=== PATIENT | female | born 1965 | race Caucasian/White ===

== ENCOUNTER → 2018-02-24 10:22 | Outpatient (CLI) | payer OTHER, SELFPAY ==
--- NOTE | 2018-02-24 10:25 | MM_ITS ---
MM Dig screening mamm BI w/CAD ORDERING PHYSICIAN : Josselin Mcconnell PATIENT AGE: 53 years GENDER: Female COMPARISON: February 20172014, July 2010 INDICATION: ITS.REASON: SCREENING no hormones. No new complaints Family history. Mother with breast cancer. Maternal grandmother with breast cancer. TECHNIQUE: Standard CC and MLO images were obtained. R2 CAD reviewed. FINDINGS: Mild/moderate residual fibroglandular elements in the immediate retroareolar region with otherwise generalized fatty replacement. No dominant or suspicious mass no suspicious calcifications. . No new areas of concern . CAD computer review highlights no areas of concern either . IMPRESSION: ... Stable bilateral mammogram. Follow-up in one year recommended. BI-RADS Category: 1 Negative RECOMMENDED FOLLOW-UP: 1YR 1 YEAR FOLLOW-UP (A letter has been sent to the patient regarding results of the study.)
== END ==
PROVIDERS: Family Provider Family Medicine; PCP Family Medicine; Visit Provider Obstetrics & Gynecology Gynecology
DX: Z12.31 Encounter for screening mammogram for malignant neoplasm of breast (principal)
CPT/HCPCS: 77067

== ENCOUNTER → 2019-04-18 09:16 | Outpatient (CLI) | payer OTHER, SELFPAY ==
--- NOTE | 2019-04-18 09:20 | MM_ITS ---
PROCEDURE: MM DIG SCREENING MAMM BI W/CAD CLINICAL INDICATION: SCREENING There is a history of breast cancer in patient's mother and grandmother. COMPARISON: [facility] DIG MAMM-SCREEN KIM from 02/11/2015 [facility] DIG MAMM-SCREEN KIM W/CAD from 02/15/2017 [facility] MM Dig screening mamm BI w/CAD from 02/24/2018 TECHNIQUE: Standard CC and MLO images were obtained. R2 CAD reviewed. FINDINGS: The breasts are composed primarily of fat with minimal fibroglandular elements seen in the subareolar regions bilaterally. The findings are stable unchanged from previous exams. There is no suspicious lesion and no suspicious microcalcifications. There is stable small nodes in both axilla. IMPRESSION: Fibrofatty parenchyma with no suspicious lesions seen BI-RAD Category: 1 Negative FOLLOW-UP: 1YR 1 Year Follow-up (A letter has been sent to the patient regarding results of the study.) Dictated by: Dr. Arun Farias MD 04/19/2019 16:[address] Arun Farias MD in [place] 04/19/2019 16:30
== END ==
PROVIDERS: PCP Family Medicine; Visit Provider Obstetrics & Gynecology Gynecology
DX: Z12.31 Encounter for screening mammogram for malignant neoplasm of breast (principal)
CPT/HCPCS: 77067

== ENCOUNTER → 2019-11-19 10:22 | Outpatient (CLI) | payer OTHER, SELFPAY ==
--- NOTE | 2019-11-19 10:32 | US_ITS ---
PROCEDURE: US THYROID CLINICAL INDICATION: GOITER Goiter COMPARISON: No exams were available for comparison FINDINGS: Right lobe: 5.3 x 2.1 x 1.8 cm. There are multiple small hypoechoic nodules. The largest nodule on the right is 11 x 7 mm and is mixed hypoechoic and slightly hyperechoic well-circumscribed. The Left lobe: 5.2 x 2.4 x 3 cm. A dominant nodules present in the mid polar region on the left at 3.4 x 2.5 cm. This is mildly suspicious with the T rads level 3 greater than 2.5 cm. Recommend ultrasound-guided FNA. There is an additional 6 mm cyst in the mid polar region on the left Isthmus: Mildly thickened at 6 mm with a small hypoechoic nodule laterally on the right at 3 mm Additional findings: IMPRESSION: Enlarged thyroid gland bilaterally with dominant nodule on the left T rads level 3 mildly suspicious, recommend ultrasound-guided FNA Dictated by: Charlie Gu MD 11/19/2019 12:20 Electronically signed by Charlie Gu MD in [place] 11/19/2019 12:20
== END ==
PROVIDERS: PCP Family Medicine; Visit Provider Family Medicine
DX: E04.9 Nontoxic goiter, unspecified (principal)
CPT/HCPCS: 76536

== ENCOUNTER → 2021-08-10 13:13 | Outpatient (CLI) | payer OTHER, SELFPAY ==
--- NOTE | 2021-08-10 13:21 | XR_ITS ---
FINAL REPORT CLINICAL HISTORY: mid/lower back pain since pt felt pop on 08/08/20 while bending COMPARISON: Prior lumbar spine radiographs dated March 22, 2017 FINDINGS: THORACIC SPINE Three views were obtained. There is no acute fracture. There is no malalignment. There are mild and moderate degenerative changes with osteophytes. There is no soft tissue abnormality. IMPRESSION: Mild and moderate degenerative changes with no acute bony abnormality. LUMBAR SPINE Five views were obtained. There is no acute fracture. There is no malalignment. There are mild and moderate degenerative changes with osteophytes. There is no soft tissue abnormality. IMPRESSION: Mild degenerative changes with no acute bony abnormality, stable. Reviewed, Interpreted and Dictated by Markus Shanks III, MD Transcribed by Margy Robledo Authenticated by Markus Shanks III, MD on 08/10/2021 02:37:19 PM [facility]
--- NOTE | 2021-08-10 13:23 | XR_ITS ---
FINAL REPORT CLINICAL HISTORY: pain FINDINGS: RIGHT ANKLE: Three weight-bearing views of the right ankle were obtained. There is no acute fracture or dislocation. The joint spaces and mortise are intact. There are small calcaneal spurs. There is no soft tissue abnormality. IMPRESSION: No acute bony abnormality. Reviewed, Interpreted and Dictated by Markus Shnaks III, MD Transcribed by Margy Robledo Authenticated by Markus Shanks III, MD on 08/10/2021 02:37:12 PM [facility]
--- NOTE | 2021-08-10 13:23 | XR_ITS ---
FINAL REPORT CLINICAL HISTORY: pain FINDINGS: LEFT FOOT Three weight-bearing views of the left foot demonstrate no acute fracture or dislocation. There are postoperative changes of the distal fibula. The visualized joint spaces are normally aligned. There are mild degenerative changes. There is a small calcaneal spur. The soft tissues are unremarkable. IMPRESSION: No acute bony abnormality. Reviewed, Interpreted and Dictated by Markus Shanks III, MD Transcribed by Margy Robledo Authenticated by Markus Shanks III, MD on 08/10/2021 02:37:27 PM [facility]
--- NOTE | 2021-08-10 13:23 | XR_ITS ---
FINAL REPORT CLINICAL HISTORY: pain FINDINGS: RIGHT FOOT Three weight-bearing views of the right foot demonstrate no acute fracture or dislocation. The visualized joint spaces are normally aligned. There are mild degenerative changes. There are small calcaneal spurs. The soft tissues are unremarkable. IMPRESSION: No acute bony abnormality. Reviewed, Interpreted and Dictated by Markus Shanks III, MD Transcribed by Margy Robledo Authenticated by Markus Shanks III, MD on 08/10/2021 02:37:11 PM [facility]
--- NOTE | 2021-08-10 13:23 | XR_ITS ---
FINAL REPORT CLINICAL HISTORY: pain FINDINGS: LEFT ANKLE: Three weight-bearing views of the left ankle were obtained. There are postoperative changes of the distal fibula. There is no acute fracture or dislocation. There are mild degenerative changes with osteophytes. There is a small calcaneal spur. There is no soft tissue abnormality. IMPRESSION: Mild degenerative change with no acute bony abnormality. Reviewed, Interpreted and Dictated by Markus Shanks III, MD Transcribed by Margy Robledo Authenticated by Markus Shanks III, MD on 08/10/2021 02:37:[address] [facility]
== END ==
PROVIDERS: PCP Family Medicine; Referring Provider Podiatrist; Visit Provider Nurse Practitioner Family
DX: M79.672 Pain in left foot (principal); M79.671 Pain in right foot; M25.572 Pain in left ankle and joints of left foot; M25.571 Pain in right ankle and joints of right foot
CPT/HCPCS: 72084; 73610; 73630

== ENCOUNTER → 2021-09-23 10:48 | Outpatient (CLI) | payer OTHER, SELFPAY ==
--- NOTE | 2021-09-23 10:51 | MM_ITS ---
PROCEDURE INFORMATION: Exam: MG Bilateral Screening 3D Mammography Exam date and time: 09/23/2021 10:47 AM Age: 56 years old Clinical indication: Screening mammogram. TECHNIQUE: Imaging protocol: Bilateral Screening tomosynthesis and 2D mammography including computer-aided detection (CAD) when performed. COMPARISON: 1. MG MM DIG SCREENING MAMM BI W/CAD 04/18/2019 9:28 AM 2. MG [facility] MM Dig screening mamm BI w/CAD 02/24/2018 10:39 AM 3. MG [facility] DIG MAMM-SCREEN KIM W/CAD 02/15/2017 11:06 AM 4. MG [facility] DIG MAMM-SCREEN KIM 02/11/2015 9:52 AM FINDINGS: MAMMOGRAPHY: Breast composition: There are scattered areas of fibroglandular density. Mass: None. Architectural distortion: No new or suspicious architectural distortion. Calcifications: No new or suspicious calcifications are present Asymmetric density: No new or suspicious asymmetric density is present Skin thickening: None. Axillary adenopathy: None. IMPRESSION: No mammographic evidence of malignancy. Recommend annual screening mammography unless otherwise clinically indicated. ASSESSMENT: BI-RADS category 1: Negative
== END ==
PROVIDERS: PCP Family Medicine; Visit Provider Obstetrics & Gynecology Gynecology
DX: Z12.31 Encounter for screening mammogram for malignant neoplasm of breast (principal)
CPT/HCPCS: 77063; 77067

== ENCOUNTER → 2021-11-19 11:37 | Outpatient (CLI) | payer OTHER, SELFPAY | PROVIDERS: PCP Physician Assistant; Visit Provider Physician Assistant | DX: U07.1 COVID-19 (principal) | CPT/HCPCS: C9803; U0003; U0005 ==

== ENCOUNTER → 2021-12-17 16:06 | Outpatient (CLI) | payer OTHER, SELFPAY ==
--- NOTE | 2021-12-17 16:12 | XR_ITS ---
FINAL REPORT CLINICAL HISTORY: EXERTIONAL SHORTNESS OF BREATH FINDINGS: Two views of the chest were obtained. The heart size and pulmonary vascularity are within normal limits. The mediastinum is normal. There is mild bronchial wall thickening which may represent bronchitis. There is no pneumothorax. The bony thorax is intact. IMPRESSION: Findings may represent bronchitis. Reviewed, Interpreted and Dictated by Markus Shanks III, MD Transcribed by Margy Robledo Authenticated and . [facility]
--- NOTE | 2021-12-17 16:12 | XR_ITS ---
FINAL REPORT CLINICAL HISTORY: RT SHOULDER PAIN FINDINGS: RIGHT SHOULDER 3 views demonstrate no acute fracture or dislocation. There are mild degenerative changes of the acromioclavicular joint. The visualized bony structures are well aligned. No soft tissue abnormality is seen. IMPRESSION: Mild degenerative change of the acromioclavicular joint. Reviewed, Interpreted and Dictated by Markus Shanks III, MD Transcribed by aMrgy Robledo Authenticated and [facility]
== END ==
PROVIDERS: PCP Physician Assistant; Visit Provider Physician Assistant
DX: R06.09 Other forms of dyspnea (principal); M25.511 Pain in right shoulder
CPT/HCPCS: 71046; 73030

== ENCOUNTER → 2021-12-25 09:13 | Outpatient (CLI) | payer OTHER, SELFPAY ==
--- NOTE | 2021-12-25 | CA_ITS ---
APPROVED REPORT Exam: Exercise Treadmill Technologist: Janet Machado, Ht: 5 ft 4 in Wt: 255 lbs BSA: 2.17 m2 HR: 85 bpm BP: 114/83 mmHg Rhythm: sinus tach Medical History Medications: Albuterol,,,,, Stress Test Details Test: Pat HR Resting HR: 107 bpm Max Heart Rate (APMHR): 166 bpm Max HR Achieved: 178 bpm Target HR (85% APMHR): 141 bpm % of APMHR: 107 Recovery HR: 150 bpm BP Resting BP: 125/83 mmHg Max BP: 162/90 mmHg Recovery BP: 162.0/90.0 mmHg ECG Resting ECG: Sinus tach Clinical Exercise duration: 04:32 min Highest Stage Achieved: Exercise capacity: 7.0 METs Stress ECG Conclusion During pat protocol pt experinced SOA with exertion, no CP noted. PVCs noted per Health Services Coordinator report, but I do not see these on recorded views. Extremely poor fitness... If PVCs were present during exercise combined with poor fitness would consider doing imaging stress test. Test Summary REST . . . . . . . Sitting REST . . . . . . . Standing REST 05:36 0.0 0.0 107 . 125/ 83 . . Stage 1 01:00 10.0 1.7 126 . . . . Stage 1 02:00 10.0 1.7 137 . . . . Stage 1 03:00 10.0 1.7 152 . 159/ 85 . . Stage 2 01:00 12.0 2.5 169 . . . . Stage 2 01:32 12.0 2.5 175 . . . Stop exercise at 04:32 RECOVERY 01:00 0.0 0.0 149 . 162/ 90 . . RECOVERY 02:00 0.0 0.0 123 . 162/ 90 . . RECOVERY 03:00 0.0 0.0 108 . 162/ 90 . . RECOVERY 04:00 0.0 0.0 103 . 113/ 86 . . RECOVERY 04:32 0.0 0.0 105 . 131/ 89 . . Electronically signed by : Klever Recio MD 12/25/2021 17:28:33
== END ==
PROVIDERS: PCP Physician Assistant; Visit Provider Physician Assistant
DX: R06.02 Shortness of breath (principal)
CPT/HCPCS: 93017

== ENCOUNTER 2022-01-06 14:50 | Outpatient (RCR) | payer OTHER, SELFPAY | END 2022-01-06 14:55 | disposition home or self-care (01) | LOC: OT 14:50 | PROVIDERS: PCP Physician Assistant; Visit Provider Physician Assistant | DX: M25.511 Pain in right shoulder (principal) | CPT/HCPCS: 97165 ==

== ENCOUNTER → 2022-02-11 07:22 | Outpatient (CLI) | payer SELFPAY ==
--- NOTE | 2022-02-11 07:22 | CT_ITS ---
FINAL REPORT CLINICAL HISTORY: . evaluate for cad FINDINGS: CT CORONARY CALCIUM SCORE W/O TECHNIQUE: Thin-section axial images were obtained through the heart and coronary arteries per CT coronary calcium score protocol. This study was performed with techniques to keep radiation doses as low as reasonably achievable (ALARA). Individualized dose reduction techniques using automated exposure control or adjustment of mA and/or kV according to the patient's size were employed. FINDINGS: On the axial images, there is calcification within the LAD. This gives a coronary artery calcium score of 1 based on the Agatston scale. This coronary artery calcium score places the patient within the 41st percentile based on age and gender. The heart size is normal. There is no pleural or pericardial effusion. Limited evaluation of the lungs reveal no suspicious nodule. IMPRESSION: Coronary artery calcium score of 1 based on the Agatston scale placing the patient within the 41st percentile based on age and gender. Reviewed, Interpreted and Dictated by Markus Shanks III, MD Transcribed by Margy Robledo Authenticated and [facility]
== END ==
PROVIDERS: PCP Family Medicine; Visit Provider Internal Medicine Cardiovascular Disease
DX: R06.00 Dyspnea, unspecified (principal); R42 Dizziness and giddiness; R00.2 Palpitations; R53.83 Other fatigue; R94.31 Abnormal electrocardiogram [ECG] [EKG]; Z87.891 Personal history of nicotine dependence
CPT/HCPCS: 75571

== ENCOUNTER → 2022-02-11 07:49 | Outpatient (CLI) | payer OTHER, SELFPAY ==
--- NOTE | 2022-02-11 07:51 | CA_ITS ---
APPROVED REPORT EXAM: Comprehensive 2D, Doppler, and color-flow Echocardiogram Flash Designer: Madison Jeffery RDCS Ht: 5 ft 4 in Wt: 251lbs BSA: 2.16 BP: 133/76 mmHg Indications: SOA,CAD 2D Dimensions LVOT 1.85 cm (M/F) 1.5-2.5 M-Mode Dimensions RVDd 1.91 cm (0.9-2.6) LA Diam 4.17 cm (1.9-4.0) LVDd 5.46 cm (3.5-5.7) Ao Diam 2.73 cm (2.0-3.7) LVDs 3.80 cm (3.5-5.7) IVSd 0.72 cm (0.6-1.1) PWd 0.72 cm (0.6-1.1) EF (Teich) 57.20% FS 30.40% EDV (Teich) 145.00 mL TAPSE 2.82 (<1.7) ESV (Teich) 62.00 mL LV Diastology E Decel Time 183.00 (160-240 msec) E/A Ratio 0.9 MED E' 7.30 (< 7 cm/sec) E'/MED E' Ratio 7.15 (>14) LAT E' 10.90 (<10 cm/sec) E/LAT E' Ratio 4.79 (>14) Mitral Valve MV E Max Benito. 52.00 (40-130 cm/s) MV A Velocity 57.00 (40-130 cm/s) E/A Ratio 0.92 MV Decel. Time 183.00 (160-240 ms) MV PHT 54.00 ms Tricuspid Valve TR P. Velocity 236.00 cm/s RAP Estimate 10.00 mmHg RVSP 32.20 mmHg Left Ventricle Left atrium is mildly enlarged, left ventricle normal size, there is no concentric left ventricular hypertrophy, estimated ejection fraction 55% with no regional wall motion abnormality. Diastolic parameters are inconclusive. Right Ventricle Right atrium and right ventricle are normal size and contractility. Aortic Valve Aortic valve is minimally thickened and fibrosed there is no aortic stenosis or aortic insufficiency. Mitral Valve Mitral valve is grossly normal, there is trace mitral regurgitation. Tricuspid Valve Tricuspid grossly normal, there is trace tricuspid regurgitation, calculated right ventricular systolic pressure 32 mmHg. Pulmonic Valve Pulmonic valve is poorly visualized. Great Vessels Aortic root is normal size. Inferior vena cava is poorly visualized. Pericardium No significant pericardial effusion noted. Conclusion 1. Normal left ventricular size preserved left ventricular systolic function, estimated ejection fraction 55% with no regional wall motion abnormality, diastolic parameters are inconclusive. 2. Trace mitral and tricuspid regurgitation. Calculated right ventricular systolic pressure 32 mmHg. 3. No significant pericardial effusion noted. 4. Inferior vena cava is poorly visualized. Electronically signed by : Valentin Lafleur MD 02/12/2022 15:54:03
--- NOTE | 2022-02-11 07:51 | US_ITS ---
FINAL REPORT CLINICAL HISTORY: numbness/tingling lower extremities FINDINGS: ANKLE-BRACHIAL PRESSURE INDICES Pressure indices are as follows: RIGHT LOWER EXTREMITY: Ankle-brachial pressure index: 1.22 Comments: Normal LEFT LOWER EXTREMITY: Ankle-brachial pressure index: 1.26 Comments: Normal IMPRESSION: No evidence of significant obstructive peripheral vascular disease of the lower extremities Reviewed, Interpreted and Dictated by Markus Shanks III, MD Transcribed by Rhonda Romero Authenticated and [facility]
[2022-02-11 08:59] LABS: Basophils # 0.1 K/mm3 (0-0.2); Basophils % 1.3 % (0.1-2.0); Eosinophils # 0.3 K/mm3 (0.0-0.4); Eosinophils % 3.6 % (0.1-12.0); Hematocrit 40.3 % (37.0-47.0); Hemoglobin 12.6 g/dL (12.2-16.2); Lymphocytes # 2.3 K/mm3 (0.7-4.5); Lymphocytes % 33.1 % (10-50); Mean Corpuscular HGB Conc 31.2 g/dL (31.8-35.4); Mean Corpuscular Hemoglobin 30.3 pg (27.0-31.2); Mean Corpuscular Volume 97.2 fl (81-99); Monocytes # 0.4 K/mm3 (0.1-1.0); Monocytes % 5.9 % (1.7-9.3); Neutrophils # 3.9 K/mm3 (1.8-7.8); Platelet Count 303 K/mm3 (142-424); Red Blood Count 4.15 M/mm3 (4.20-5.40); Red Cell Distribution Width 13.6 % (11.5-17.5)
[2022-02-11 10:17] LABS: Chloride 106 mmol/L (98-107); Potassium 4.4 mmoL/L (3.5-5.1); Sodium 140 mmol/L (136-145)
[2022-02-11 10:19] LABS: Blood Urea Nitrogen 21 mg/dl (7-17); Estimated Glomerular Filt Rate 87 ml/min (>60); GFR (African American) 105 ML/MIN (>60)
[2022-02-11 10:20] LABS: Alanine Aminotransferase 18 U/L (12-78); Albumin Level 4.4 g/dl (3.5-5.0); Alkaline Phosphatase 103 U/L (38-126); Anion Gap 8.4 mEq/L (5-15); Aspartate Amino Transferase 26 U/L (14-36); Calcium 9.1 mg/dl (8.4-10.2); Carbon Dioxide 30 mmol/L (22.0-30.0); Cholesterol 204 mg/dl (140-200); Glucose 107 mg/dl (74-100); Triglycerides 73 mg/dl (30-150); VLDL Cholesterol 15 mg/dL (0-40)
[2022-02-11 10:21] LABS: Chol/HDL Ratio 2.9 (1-3.5); HDL Cholesterol 70 mg/dl (40-60)
[2022-02-11 10:27] LABS: Bilirubin,Total < 0.1 mg/dl (0.2-1.3)
[2022-02-11 10:35] LABS: NT Pro Brain Natriuretic Pep. 92.5 pg/mL (0-125)
[2022-02-11 10:36] LABS: Bilirubin,Indirect 0.1 mg/dL (0.0-0.9)
[2022-02-11 10:42] LABS: Free T4 (Free Thyroxine) 1.08 ng/dl (0.78-2.19)
[2022-02-11 10:56] LABS: Thyroid Stimulating Hormone 3.32 uIU/mL (0.465-4.68)
[2022-02-12 08:24] LABS: Direct LDL Cholesterol 113 mg/dL (100-129)
== END ==
PROVIDERS: PCP Physician Assistant; Visit Provider Internal Medicine Cardiovascular Disease
DX: R06.00 Dyspnea, unspecified (principal); R42 Dizziness and giddiness; R00.2 Palpitations; R53.83 Other fatigue; R94.31 Abnormal electrocardiogram [ECG] [EKG]; Z87.891 Personal history of nicotine dependence
CPT/HCPCS: 36415; 80048; 80061; 80076; 83735; 83880; 84439; 84443; 85025; 93306; 93923

== ENCOUNTER → 2022-05-13 15:13 | Outpatient (CLI) | payer OTHER, SELFPAY ==
--- NOTE | 2022-05-13 15:34 | XR_ITS ---
FINAL REPORT CLINICAL HISTORY: left wrist/hand pain, chronic FINDINGS: 3 views of the left hand were obtained. There is no acute fracture or dislocation. There is mild narrowing of the distal interphalangeal joints. There is no soft tissue abnormality. IMPRESSION: No acute process. Reviewed, Interpreted and Dictated by Jelani Llanes MD Transcribed by Ori Francois Authenticated and [facility]
--- NOTE | 2022-05-13 15:35 | XR_ITS ---
FINAL REPORT CLINICAL HISTORY: left wrist/hand pain, chronic FINDINGS: 3 views of the left wrist were obtained. There is no acute fracture or dislocation. The joint spaces are intact. There is soft tissue edema over the dorsum of the wrist. IMPRESSION: No acute bony abnormality. Reviewed, Interpreted and Dictated by Jelani Llanes MD Transcribed by Ori Francois Authenticated and [facility]
== END ==
PROVIDERS: PCP Physician Assistant; Visit Provider Physician Assistant
DX: M65.4 Radial styloid tenosynovitis [de Quervain] (principal); M79.645 Pain in left finger(s)
CPT/HCPCS: 73110; 73130

== ENCOUNTER → 2023-02-17 09:57 | Outpatient (CLI) | payer OTHER, SELFPAY ==
--- NOTE | 2023-02-17 10:03 | MM_ITS ---
PROCEDURE INFORMATION: Exam: MG Bilateral Screening 3D Mammography Exam date and time: 02/17/2023 10:03 AM Age: 58 years old Clinical indication: Screening examination; Family history of breast cancer in mother and in grandmother; Mother's age: Unknown TECHNIQUE: Imaging protocol: Bilateral Screening tomosynthesis and 2D mammography including computer-aided detection (CAD) when performed. COMPARISON: 1. MG MM DIG SCREENING MAMM BI W/CAD 09/23/2021 10:47 AM 2. MG MM DIG SCREENING MAMM BI W/CAD 04/18/2019 9:28 AM FINDINGS: MAMMOGRAPHY: Breast composition: There are scattered areas of fibroglandular density. Mass: None. Architectural distortion: None. Calcifications: No suspicious calcifications. Asymmetric density: None. Skin thickening: None. Axillary adenopathy: None. IMPRESSION: No mammographic evidence of malignancy. Annual screening is recommended unless otherwise clinically indicated. ASSESSMENT: BI-RADS Category 1: Negative
== END ==
PROVIDERS: PCP Physician Assistant; Visit Provider Family Medicine
DX: Z12.31 Encounter for screening mammogram for malignant neoplasm of breast (principal)
CPT/HCPCS: 77063; 77067

== ENCOUNTER → 2023-02-21 16:33 | Outpatient (CLI) | payer OTHER, SELFPAY ==
--- NOTE | 2023-02-21 | XR_ITS ---
PROCEDURE INFORMATION: Exam: XR Lumbosacral Spine Exam date and time: 02/21/2023 4:45 PM Age: 58 years old Clinical indication: Pain; Lumbago; Prior surgery; Surgery date: 6+ months; Surgery type: Gastric surg TECHNIQUE: Imaging protocol: Radiologic exam of the lumbosacral spine. Views: 2 or 3 views. COMPARISON: CR XR MULTIPLE SPINE 6+V 08/10/2021 1:26 PM FINDINGS: Bones/joints: There is mild lower lumbar degenerative disease with facet arthropathy and intervertebral disc space narrowing. No acute fracture or dislocation is identified. Soft tissues: Stable appearance of midline abdominal wall christie. Upper abdominal surgical clips are noted. IMPRESSION: Degenerative disease without acute injury identified.
== END ==
PROVIDERS: PCP Nurse Practitioner Family; Visit Provider Nurse Practitioner Family
DX: M54.9 Dorsalgia, unspecified (principal); M54.50 Low back pain, unspecified
CPT/HCPCS: 72100